=== PATIENT | female | born 1960 | race Caucasian/White ===

== ENCOUNTER → 2017-07-21 | Outpatient (CLI) | payer MEDICARE ==
[~2017-07-21] MED LIST: ALBU8.5H IH; ALLO100T70 PO; ALP1 PO; ASP81; ASPI-839 PO; CHOL100094; CHOL200022 PO; CIT20; CYC10 PO; CYCL10TA29 PO; FURO20TA19 PO; HCTZ25 PO; HYD200 PO; HYDR-2954 PO; HYDR-4309 PO; LISI20TA29 PO; LOR05 PO; LOSA50TA67 PO; METO-231 PO; METO100T20 PO; MULT-1176 PO; NAP500; OMEP-125 PO; ONDA4TAB PO; PRE5 PO; RIVA10TA PO; TRAM-420 PO
--- NOTE | 2017-07-21 14:16 | RADIOLOGY IMAGING REPORT ---
FACILITY: [facility] - [place] PATIENT NAME: Mercedes Naidu : 1960 MR: [id number] V: [id number] EXAM DATE: ORDERING PHYSICIAN: JARRET FROST TECHNOLOGIST: Location[place] [facility] [place] Patient: Mercedes Naidu : 1960 Visit/Account:[id number] Date of Sevice: 07/21/2017 2 VIEWS CHEST INDICATION: Posterior rib pain, shortness of breath, history of smoking. COMPARISON: Examination chest December 2014 FINDINGS: Heart is enlarged, stable. Linear scarring/atelectasis is noted laterally in the midlung. Stable linear prominence of the interstitium in the right hilum. No current failure, consolidation, effusion or pneumothorax. Bones reveal mild multilevel spondylosis without acute finding. IMPRESSION: 1. Cardiomegaly with stable chronic interstitial changes. No acute finding. No evidence of acute bony finding. Report Dictated By: Eliot Torres MD at 07/21/2017 2:11 PM Report E-Signed By: Eliot Torres MD at 07/21/2017 2:13 PM WSN:[id number]
== END ==
LOC: RAD 13:38
PROVIDERS: ATTEND Nurse Practitioner Family
DX: I51.7 Cardiomegaly (principal)
CPT/HCPCS: 71046

== ENCOUNTER → 2018-03-02 | Outpatient (CLI) | payer MEDICARE ==
[~2018-03-02] MED LIST changes: -HYDR-4309 PO; +HYDR-653 PO
[2018-03-02 14:57] LABS: PLATELET COUNT, AUTOMATED 205 K/uL (150-450)
--- NOTE | 2018-03-02 15:09 | EKG ---
[place]AC[place] [facility] [place]IENT NAME: SHAKIRA SIMMONS : [id number] MR: [id number] V: [id number] EXAM DATE: ORDERING PHYSICIAN: JARRET FROST TECHNOLOGIST: ERLINDA Test Reason : AFIB Blood Pressure : / mmHG Vent. Rate : 071 BPM Atrial Rate : 071 BPM P-R Int : 174 ms QRS Dur : 150 ms QT Int : 482 ms P-R-T Axes : 027 -03 071 degrees QTc Int : 523 ms Sinus rhythm with premature ventricular complexes or fusion complexes Left bundle branch block Abnormal ECG When compared with ECG of 26-DEC-2014 07:56, Atrial flutter is no longer present QRS axis shifted right T wave inversion no longer evident in Lateral leads Confirmed by PHIL CROWE ([id number]) on 03/02/2018 7:03:07 PM Referred By: SANTOSH Confirmed By:PHIL CROWE
== END ==
LOC: LAB 14:38
PROVIDERS: ATTEND Nurse Practitioner Family
DX: I44.7 Left bundle-branch block, unspecified (principal); R94.31 Abnormal electrocardiogram [ECG] [EKG]; I49.3 Ventricular premature depolarization; E11.9 Type 2 diabetes mellitus without complications; R60.9 Edema, unspecified; J44.9 Chronic obstructive pulmonary disease, unspecified
CPT/HCPCS: 36415; 82040; 82247; 82310; 82374; 82435; 82565; 82947; 83036; 84075; 84132; 84155; 84295; 84450; 84460; 84520; 85025; 93005

== ENCOUNTER → 2018-09-14 | Outpatient (CLI) | payer MEDICARE ==
[~2018-09-14] MED LIST changes: -OMEP-125 PO; +OMEP-126 PO
--- NOTE | 2018-09-15 09:53 | RADIOLOGY IMAGING REPORT ---
FACILITY: [facility] - [place] PATIENT NAME: SHAKIRA SIMMONS : [id number] MR: [id number] V: [id number] EXAM DATE: [id number] ORDERING PHYSICIAN: JARRET FROST TECHNOLOGIST: Cathleen Cruz PROCEDURE: BILATERAL DIGITAL SCREENING MAMMOGRAM WITH CAD ASSISTED INTERPRETATION & 3D TOMOSYNTHESIS REASON FOR STUDY: Screening. COMPARISON: 02/03/13. VIEWS OBTAINED: 2D & 3D full field CC & MLO projections. BREAST DENSITY: The breast parenchyma is mostly fatty replaced. MAMMOGRAM FINDINGS: There are no mammographic findings concerning for malignancy. No significant interval change. IMPRESSION: BIRADS 1: Negative. DIAGNOSTIC CATEGORY 1--NEGATIVE. RECOMMENDATIONS: ROUTINE MAMMOGRAM AND CLINICAL EVALUATION IN 1YR. Dictated by: Justin Richards on 09/14/2018 at 15:32 Transcribed by: LINA on 09/14/2018 at 16:10 Approved by: Carley Cisneros M.D. on 09/15/2018 at 9:48 [facility]
== END ==
LOC: MAMO 00:10
PROVIDERS: ATTEND Nurse Practitioner Family
DX: Z12.31 Encounter for screening mammogram for malignant neoplasm of breast (principal)
CPT/HCPCS: 77063; 77067